=== PATIENT | female | born 1965 | race Two or more races ===

== ENCOUNTER → 2020-12-20 | Outpatient (CLI) | payer BC ==
[~2020-12-20] MED LIST: MECL-75 PO; ONDA4TAB7 PO
--- NOTE | 2020-12-26 12:09 | RAD ---
EXAM: Bilateral digital screening mammogram. HISTORY: 55-year-old female presents for screening mammography. TECHNIQUE: Full-field digital craniocaudal and mediolateral oblique images of both breasts are obtain ed for evaluation. Computer aided detection was applied. COMPARISON: 01/13/2020 BREAST PARENCHYMAL DENSITY: Level C - Heterogeneously dense. FINDINGS: There is no new suspicious mass, microcalcification or region of architectural distortion. IMPRESSION: BI-RADS Category 2: Benign finding(s). RECOMMENDATION: Annual mammography is recommended. If your mammogram demonstrates that you have dense breast tissue, which could hide abnormalities, and if you have other risk factors for breast cancer that have been identified, you might benefit from s upplemental screening tests that may be suggested by your ordering physician. Dense breast tissue, i n and of itself, is a relatively common condition. This information is not provided to cause undue c oncern, but rather to raise your awareness and to promote discussion with your physician regarding th e presence of other risk factors, in addition to dense breast tissue. A report of your mammography re sults will be sent to you and your physician. You should contact your physician if you have any ques tions or concerns regarding this report. Mammography is a sensitive method for finding small breast cancers, but it does not detect them all a nd is not a substitute for careful clinical examination. A negative mammogram does not negate a clin ically suspicious finding and should not result in delay in biopsying a clinically suspicious abnorma lity. PQRS compliance statement - Patient information was entered into a reminder system with a target due date for the next mammogram. "Our facility is accredited by the [employer] Mammography Program." Electronically signed by: Anabela Valentine MD (12/26/2020 12:07 PM) [id number]
== END ==
LOC: MAMMO 09:37
PROVIDERS: ATTEND Family Medicine
DX: Z12.31 Encounter for screening mammogram for malignant neoplasm of breast (principal)
CPT/HCPCS: 77067

== ENCOUNTER 2020-12-29 11:09 | Emergency (ER) | payer BC ==
[~2020-12-29] VITALS: Ht 157.5 cm; Wt 67.0 kg
[2020-12-29] MEDS ORDERED: ONDANSETRON PF 4 MG/2 ML VIAL. ONE (11:39)
[2020-12-29] MEDS ORDERED: IV NORMAL SALINE 1,000ML 1,000 ML IV ONE (11:45)
[2020-12-29] MEDS ORDERED: ONDANSETRON PF 4 MG/2 ML VIAL. IVP ONE (11:45)
--- NOTE | 2020-12-29 11:59 | EKG ---
[address] [address] Test Date: 2020-12-29 Test Time: 11:49:32 Pat Name: MARY YORK Department: Room: Gender: F [employer]: NIKA : 1965 Requested By: JUSTINE HALL Order Number: [id number] Reading MD: Emilio Mcguire Measurements Intervals [place] Rate: 47 P: 39 CO: 150 QRS: 6 QRSD: 90 T: 24 QT: 450 QTc: 398 Interpretive Statements SINUS BRADYCARDIA Electronically Signed On 12-30-2020 16:40:25 CDT by Emilio Mcguire
[2020-12-29] MEDS ORDERED: MECLIZINE 12.5 MG TABLET. PO ONE (12:00)
[2020-12-29 12:14] LABS: BASO # 0.1 x10^3/uL (0.0-0.2); BASO % 1 % (0-3); EOS # 0.1 x10^3/uL (0.0-0.7); EOS % 2 % (0-3); HEMATOCRIT 42.5 % (36.0-47.0); HEMOGLOBIN 14.4 g/dL (12.0-15.5); LYMPH # 1.8 x10^3/uL (1.0-4.8); LYMPH % 23 % (24-48); MEAN CORPUSCULAR HEMOGLOBIN 30 pg (25-35); MEAN CORPUSCULAR HGB CONC 34 g/dL (31-37); MEAN CORPUSCULAR VOLUME 88 fL (79-100); MONO # 0.5 x10^3/uL (0.0-1.1); MONO % 6 % (0-9); NEUT # 5.2 x10^3uL (1.8-7.7); NEUT % 67 % (31-73); PLATELET COUNT 240 x10^3/uL (140-400); RED BLOOD COUNT 4.82 x10^6/uL (3.50-5.40); RED CELL DISTRIBUTION WIDTH 12.9 % (11.5-14.5); WHITE BLOOD COUNT 7.6 x10^3/uL (4.0-11.0)
--- NOTE | 2020-12-29 12:15 | RAD ---
EXAM: CHEST ONE VIEW. HISTORY: Dizziness. COMPARISON: None. FINDINGS: A frontal view of the chest is obtained. There are no confluent infiltrates. There is no pneumothorax or pleural effusion. The heart is not en larged. A small to moderate hiatal hernia is suspected. IMPRESSION: 1. Correlate for a small to moderate hiatal hernia. No confluent infiltrates. Electronically signed by: Myles Sims MD (12/29/2020 12:12 PM) [facility]
--- NOTE | 2020-12-29 12:18 | RAD ---
EXAM: CT HEAD WITHOUT CONTRAST. HISTORY: Nausea, dizziness. TECHNIQUE: Computed tomography of the head was performed without intravenous contrast. One or more of the following individualized dose reduction techniques were utilized for this examination: 1. Automated exposure control. 2. Adjustment of the mA and/or kV according to patient size. 3. Use of iterative reconstruction technique. COMPARISON: None. FINDINGS: There is no intracranial hemorrhage. Knight-white differentiation is preserved. The ventricle s are normal in size and position. The visualized paranasal sinuses appear clear. The orbits are unremarkable. The temporal bones are un remarkable. The calvarium reveals no suspicious lesions. 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 IMPRESSION: 1. No acute intracranial findings. Electronically signed by: Myles Sims MD (12/29/2020 12:16 PM) [facility]
--- NOTE | 2020-12-29 12:27 | PHYS DOC ---
Past History Past Surgical History: Hysterectomy, Tonsillectomy Additional Past Surgical Histo: L foot surgery Alcohol Use: None General Adult EDM: Chief Complaint: DIZZY/LIGHT HEADED HPI: HPI: Patient is a 55-year-old female who presents with dizziness, nausea and vomiting that started this morning. Patient reports that dizziness is worse with laying down and when she closes her eyes. Patient vomited multiple times this morning. Patient is denying abdominal pain, chest pain, recent illness or shortness of breath. Review of Systems: Review of Systems: ROS At least 10 ROS systems have been reviewed and are negative except as documented in the HPI. General: Negative except as outlined in HPI above. Skin: Negative except as outlined in HPI above. HEENT: Negative except as outlined in HPI above. Neck: Negative except as outlined in HPI above. Respiratory: Negative except as outlined in HPI above.. Cardiovascular: Negative except as outlined in HPI above. Abdomen: Negative except as outlined in HPI above. : Negative except as outlined in HPI above. Back/MSK: Negative except as outlined in HPI above. Neuro: Negative except as outlined in HPI above. Psych: Negative except as outlined in HPI above. Current Medications: Current Meds: Current Medications Medications (Trade) Dose Ordered Sig/Mesfin Start Time Stop Time Status Last Admin Dose Admin Meclizine HCl (Antivert) 25 mg 1X ONCE 12/29/20 12:00 12/29/20 12:01 DC Ondansetron HCl (Zofran) 4 mg 1X ONCE 12/29/20 11:45 12/29/20 11:54 DC 12/29/20 11:55 4 MG Sodium Chloride 1,000 ml @ 1,000 mls/hr 1X ONCE 12/29/20 11:45 12/29/20 12:44 12/29/20 11:54 1,000 MLS/HR Allergies: Allergies: Allergies Coded Allergies Type Severity Reaction Last Updated Verified iodine Allergy Intermediate 12/29/20 Yes Penicillins Allergy Unknown 12/29/20 Yes amoxicillin Allergy Unknown 12/29/20 Yes clindamycin Allergy Unknown 12/29/20 Yes Physical Exam: PE: Constitutional: Well developed, well nourished, no acute distress, non-toxic appearance. [] HENT: Normocephalic, atraumatic, bilateral external ears normal, oropharynx moist, no oral exudates, nose normal. [] Eyes: PERRLA, EOMI, conjunctiva normal, no discharge. [] Neck: Normal range of motion, no tenderness, supple, no stridor. [] Cardiovascular: Sinus bradycardia Lungs & Thorax: Bilateral breath sounds clear to auscultation [] Abdomen: Bowel sounds normal, soft, no tenderness, no masses, no pulsatile masses. [] Skin: Warm, dry, no erythema, no rash. [] Back: No tenderness, no CVA tenderness. [] Extremities: No tenderness, no cyanosis, no clubbing, ROM intact, no edema. [] Neurologic: Alert and oriented X 3, normal motor function, normal sensory function, no focal deficits noted. [] Psychologic: Affect normal, judgement normal, mood normal. [] Current Patient Data: Labs: Laboratory Tests Test 12/29/20 11:45 White Blood Count 7.6 x10^3/uL (4.0-11.0) Red Blood Count 4.82 x10^6/uL (3.50-5.40) Hemoglobin 14.4 g/dL (12.0-15.5) Hematocrit 42.5 % (36.0-47.0) Mean Corpuscular Volume 88 fL (79-100) Mean Corpuscular Hemoglobin 30 pg (25-35) Mean Corpuscular Hemoglobin Concent 34 g/dL (31-37) Red Cell Distribution Width 12.9 % (11.5-14.5) Platelet Count 240 x10^3/uL (140-400) Neutrophils (%) (Auto) 67 % (31-73) Lymphocytes (%) (Auto) 23 % (24-48) L Monocytes (%) (Auto) 6 % (0-9) Eosinophils (%) (Auto) 2 % (0-3) Basophils (%) (Auto) 1 % (0-3) Neutrophils # (Auto) 5.2 x10^3uL (1.8-7.7) Lymphocytes # (Auto) 1.8 x10^3/uL (1.0-4.8) Monocytes # (Auto) 0.5 x10^3/uL (0.0-1.1) Eosinophils # (Auto) 0.1 x10^3/uL (0.0-0.7) Basophils # (Auto) 0.1 x10^3/uL (0.0-0.2) Vital Signs: Vital Signs Date Time Temp Pulse Resp B/P (MAP) Pulse Ox O2 Delivery O2 Flow Rate FiO2 12/29/20 11:20 97.9 50 18 140/71 (94) 99 EKG: EKG: Sinus bradycardia. Heart rate [address] Moreau at 1203. [] Radiology/Procedures: Radiology/Procedures: []EXAM: CT HEAD WITHOUT CONTRAST. HISTORY: Nausea, dizziness. TECHNIQUE: Computed tomography of the head was performed without intravenous contrast. One or more of the following individualized dose reduction techniques were utilized for this examination: 1. Automated exposure control. 2. Adjustment of the mA and/or kV according to patient size. 3. Use of iterative reconstruction technique. COMPARISON: None. FINDINGS: There is no intracranial hemorrhage. Knight-white differentiation is preserved. The ventricles are normal in size and position. The visualized paranasal sinuses appear clear. The orbits are unremarkable. The temporal bones are unremarkable. The calvarium reveals no suspicious lesions. 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 IMPRESSION: 1. No acute intracranial findings. Electronically signed by: Myles Sims MD (12/29/2020 12:16 PM) [facility] EXAM: CHEST ONE VIEW. HISTORY: Dizziness. COMPARISON: None. FINDINGS: A frontal view of the chest is obtained. There are no confluent infiltrates. There is no pneumothorax or pleural effusi on. The heart is not enlarged. A small to moderate hiatal hernia is suspected. IMPRESSION: 1. Correlate for a small to moderate hiatal hernia. No confluent infiltrates. Electronically signed by: Myles Sims MD (12/29/2020 12:12 PM) [facility] Heart Score: C/O Chest Pain: No Risk Factors: Risk Factors: DM, Current or recent (<one month) smoker, HTN, HLP, family history of CAD, obesity. Risk Scores: Score 0 - 3: 2.5% MACE over next 6 weeks - Discharge Home Score 4 - 6: 20.3% MACE over next 6 weeks - Admit for Clinical Observation Score 7 - 10: 72.7% MACE over next 6 weeks - Early Invasive Strategies Course & Med Decision Making: Course & Med Decision Making Pertinent Labs and Imaging studies reviewed. (See chart for details) [] 55-year-old female presents with dizziness, nausea/vomiting since this morning. EKG shows sinus bradycardia, heart rate 47 bpm. Patient unsure of normal heart rate. Denies chest pain, shortness of breath. CT head and chest x-ray are unremarkable. All labs unremarkable. Patient given meclizine, normal saline bolus, Zofran to help with symptoms. Patient given 5 mg of Valium. I had RN check orthostatics which were negative. Patient's heart rate on the monitor is consistently been 50s and 60s. Patient reports that symptoms have improved. She is sitting up in the bed and laughing and talking with her . Patient is stating that she only has dizziness with laying down. Discussed results with patient. Patient most likely has vertigo. Patient sent home with prescription for Zofran and meclizine. Advised patient to call her PCP make a follow-up appointment in the next 2 to 3 days. Patient given strict return precautions. Patient reports that she understands discharge instructions. Patient is hemodynamically stable upon disposition. Dragon Disclaimer: Dragon Disclaimer: This electronic medical record was generated, in whole or in part, using a voice recognition dictation system. Departure Departure: Impression: Primary Impression: Vertigo Additional Impression: Nausea and vomiting Qualified Codes: R11.2 - Nausea with vomiting, unspecified Disposition: HOME / SELF CARE / HOMELESS Condition: STABLE Referrals: FRANCISCO BELLO MD (PCP) Patient Instructions: Vertigo, [id number] Additional Instructions: You were seen in the emergency room for nausea and vomiting along with dizziness. We did a CT of your head which was unremarkable. All of your labs are unremarkable. You most likely have vertigo. I am sending you home with prescription for Zofran which will help with nausea and also meclizine to help with your dizziness. Please make a follow-up appointment with your PCP in the next 2 to 3 days for further evaluation. Return to the emergency room with worsening symptoms or concerns EMERGENCY DEPARTMENT GENERAL DISCHARGE INSTRUCTIONS Thank you for coming to [facility] (ED) today and trusting us with you care. We trust that you had a positivie experience in our Emergency Department. If you wish to speak to the department management, you may call the director at [phone]. YOUR FOLLOW UP INSTRUCTIONS ARE FOLLOWS: 1. Do you have a private Doctor? If you do not have a private doctor, please ask for a resource list of physicians or clinics that may be able to assist you with follow up care. 2. The Emergency Physician has interpreted your x-rays. The X-Ray specialist will also review them. If there is a change in the findings, you will be notified in 48 hours when at all possible. 3. A lab test or culture has been done, your results will be reviewed and you will be notified if you need a change in treatment. ADDITIONAL INSTRUCTIONS AND INFORMATION: 1. Your care today has been supervised by a physician who is specially trained in emergency care. Many problems require more than one evaluation for a complete diagnosis and treatment. We recommend that you schedule your follow up appointment as recommended to ensure complete treatment of you illness or injury. If you are unable to obtain follow up care and continue to have a problem, or if your condition worsens, we recommend that you return to the ED. 2. We are not able to safely determine your condition over the phone nor are we able to give sound medical advice over the phone. For these safety reasons, if you call for medical advice we will ask you to come to the ED for further evaluation. 3. If you have any questions regarding these discharge instructions please call the ED at [phone]. SAFETY INFORMATION: In the interest of safety, wellness, and injury prevention; we encourage you to wear your sealbelt, if you smoke; quite smoking, and we encourage family to use a protective helmet for bicycling and other sporting events that present an increased risk for head injury. IF YOUR SYMPTOMS WORSEN OR NEW SYMPTOMS DEVELOP, OR YOU HAVE CONCERNS ABOUT YOUR CONDITION; OR IF YOUR CONDITION WORSENS WHILE YOU ARE WAITING FOR YOUR FOLLOW UP APPOINTMENT; EITHER CONTACT YOUR PRIMARY CARE DOCTOR, THE PHYSICIAN WHOSE NAME AND NUMBER YOU WERE GIVEN, OR RETURN TO THE ED IMMEDIATELY. Scripts Meclizine Hcl (MECLIZINE HCL) 25 Mg Tablet 1 TAB PO TID for dizziness for 10 Days, #30 TAB Prov: JUSTINE HALL APRN 12/29/20 Ondansetron Hcl (ZOFRAN) 4 Mg Tablet 4 MG PO TID PRN PRN for NAUSEA for 10 Days, #30 TAB Prov: JUSTINE HALL APRN 12/29/20 JUSTINE HALL APRN Dec 29, 2020 12:27
[2020-12-29 12:29] LABS: CALCIUM 9.9 mg/dL (8.5-10.1); CREATININE 0.7 mg/dL (0.6-1.0); GFR 87.2
[2020-12-29 12:35] LABS: ALBUMIN 4.2 g/dL (3.4-5.0); ALBUMIN/GLOBULIN RATIO 1.1 (1.0-1.7); MAGNESIUM 2.1 mg/dL (1.8-2.4); TOTAL BILIRUBIN 0.6 mg/dL (0.2-1.0); TOTAL PROTEIN 8.1 g/dL (6.4-8.2)
[2020-12-29 12:47] LABS: POTASSIUM 4.3 mmol/L (3.5-5.1)
[2020-12-29] MEDS ORDERED: diazePAM 5 MG TABLET. PO ONE (13:45)
[2020-12-29 13:59] LABS: CLARITY,URINE CLOUDY; COLOR,URINE YELLOW
[2020-12-29 14:00] LABS: BACTERIA,URINE FEW /HPF (0-FEW); BILIRUBIN,URINE NEG (NEG); GLUCOSE,URINE NEG (NEG); NITRITE,URINE NEG (NEG); RBC,URINE 0 /HPF (0-2); UROBILINOGEN,URINE 0.2 mg/dL (0.2 mg/dL)
[2020-12-29] MEDS ORDERED: ONDA4TAB7 PO (14:50)
[2020-12-29] MEDS ORDERED: MECL-75 PO (14:50)
[2020-12-29 14:55] VITALS: BP 118/68
== END 2020-12-29 15:00 | disposition home or self-care (01) ==
LOC: ER 11:09
DX: R42 Dizziness and giddiness (principal); R11.2 Nausea with vomiting, unspecified; Z90.710 Acquired absence of both cervix and uterus; Z90.89 Acquired absence of other organs
CPT/HCPCS: 36415; 70450; 71045; 80053; 81001; 83735; 84484; 85025; 93005; 96361; 96374; 99285; J2405; J7030